=== PATIENT | female | born 2000 ===

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

== ENCOUNTER 2018-03-11 16:35 | Emergency (ER) | payer MEDICAID ==
[2018-03-11 16:44] VITALS: RESP 18; O2SAT 99
[2018-03-11 18:00] LABS: SQUAMOUS EPITHIAL 3 /hpf (0-5); URINE BILIRUBIN NEGATIVE (NEGATIVE); URINE BLOOD 1+ (NEGATIVE); URINE CLARITY Clear (Clear); URINE COLOR Yellow (YELLOW); URINE GLUCOSE (UA) NORMAL (Normal); URINE LEUKOCYTE ESTERASE NEG Leu/uL (Negative); URINE PROTEIN NEGATIVE (NEGATIVE); URINE UROBILINOGEN NORMAL mg/dL (0.2-1.0)
[2018-03-11 18:31] VITALS: BP 105/72; PULSE 58; TEMP 98.1
--- NOTE | 2018-03-11 18:58 | C.PDOC ---
History Of Present Illness 17 year old female presents to the ER with a complaint of cough, cold, sneezing , allergies, and suprapubic pain for the past 2 weeks. Denies fever, chills, chest pain, or SOB. Time Seen by Provider: 03/11/18 17:05 Chief Complaint (Nursing): Cough, Cold, Congestion History Per: Patient History/Exam Limitations: no limitations Onset/Duration Of Symptoms: Days Current Symptoms Are (Timing): Still Present Sick Contacts (Context): None Associated Symptoms: Cough, Other (Cold, Sneezing, Allergies, Suprapubic). denies: Fever, Chills Ear Symptoms: Bilateral: None Recent travel outside of the [place]: No Past Medical History Reviewed: Historical Data, Nursing Documentation, Vital Signs Vital Signs: Last Vital Signs Temp 98.1 F 03/11/18 18:30 Pulse 58 L 03/11/18 18:30 Resp 18 03/11/18 18:30 BP 105/72 03/11/18 18:30 Pulse Ox 99 03/11/18 23:17 Family History: States: Unknown Family Hx - Social History Hx Alcohol Use: No Hx Substance Use: Yes (weed) - Immunization History Hx Tetanus Toxoid Vaccination: No Hx Influenza Vaccination: No Hx Pneumococcal Vaccination: No Review Of Systems Constitutional: Negative for: Fever, Chills Cardiovascular: Negative for: Chest Pain, Palpitations Respiratory: Positive for: Cough. Negative for: Shortness of Breath Gastrointestinal: Positive for: Abdominal Pain. Negative for: Nausea, Vomiting Physical Exam - Physical Exam Appears: Non-toxic Skin: Normal Color, Warm, Dry, No Rash Head: Atraumatic, Normacephalic Eye(s): bilateral: Normal Inspection Ear(s): Bilateral: Normal Oral Mucosa: Moist Throat: Normal, No Erythema, No Exudate Neck: Normal ROM, Supple Chest: Symmetrical, No Tenderness Cardiovascular: Rhythm Regular, No Friction Rub, No Murmur Respiratory: Normal Breath Sounds, No Rales, No Rhonchi, No Wheezing Gastrointestinal/Abdominal: Soft, No Tenderness Back: Normal Inspection, No CVA Tenderness Extremity: Normal ROM, No Swelling Neurological/Psych: Oriented x3, Normal Speech, Normal Motor Gait: Steady ED Course And Treatment O2 Sat by Pulse Oximetry: 99 (Room air) Pulse Ox Interpretation: Normal - Radiology CXR: Interpreted by Me, Viewed By Me CXR Interpretation: Yes: No Acute Disease. No: Infiltrates Medical Decision Making Medical Decision Making: Claritin, tessalon, and prednisone administered. CXR and urinalysis ordered, results were negative. Patient reports that the suprapubic occurs only with coughing and is most likely muscular. The patient has no abdominal tenderness and normal physical exam. Patient is resting comfortably in the ER in no acute distress, vitals are stable. Will discharge home with instructions to follow up with PMD or return if symptoms worsen. Disposition - Disposition Referrals: [facility] [Outside] Disposition: HOME/ ROUTINE Disposition Time: 18:54 Condition: GOOD Additional Instructions: Follow up with the medical doctor within 1-2 days. Return if worsened. 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 - Scribe Statement The provider has reviewed the documentation as recorded by the Scribe Artur Calle All medical record entries made by the Scribe were at my direction and personally dictated by me. I have reviewed the chart and agree that the record accurately reflects my personal performance of the history, physical exam, medical decision making, and the department course for this patient. I have also personally directed, reviewed, and agree with the discharge instructions and disposition.
--- NOTE | 2018-03-12 06:58 | RAD ---
Chest x-ray two views History: Cough. Comparison: None available. Findings: No focal infiltrate or effusion. Heart size within normal limits. Impression: No focal infiltrate or effusion.
== END 2018-03-11 18:59 | disposition home or self-care (01) ==
LOC: C.ER 16:35
DX: J40 Bronchitis, not specified as acute or chronic (principal)

== ENCOUNTER 2018-06-27 19:22 | Emergency (ER) | payer MEDICAID ==
--- NOTE | 2018-06-27 20:25 | C.PDOC ---
History Of Present Illness 18 y/o female c/o growing mass in right axilla. pt sts it has been there since 2017 and has recently started growing with mild tenderness at night time. denies masses elsewhere to her knowledge. denies fever, chills, night sweats, weight loss. pt feeling fine otherwise. Time Seen by Provider: 06/27/18 19:51 Chief Complaint (Nursing): Abnormal Skin Integrity History Per: Patient History/Exam Limitations: no limitations Onset/Duration Of Symptoms: Days (since 2016) Current Symptoms Are (Timing): Worse Past Medical History Reviewed: Historical Data, Nursing Documentation, Vital Signs Vital Signs: Last Vital Signs Temp 98.4 F 06/27/18 20:32 Pulse 60 06/27/18 20:32 Resp 18 06/27/18 20:32 BP 94/64 L 06/27/18 20:32 Pulse Ox 98 06/28/18 06:01 - Medical History PMH: No Chronic Diseases Family History: States: Unknown Family Hx - Social History Hx Alcohol Use: No Hx Substance Use: Yes (weed) - Immunization History Hx Tetanus Toxoid Vaccination: No Hx Influenza Vaccination: No Hx Pneumococcal Vaccination: No Review Of Systems Constitutional: Negative for: Fever, Chills, Malaise, Weight loss Cardiovascular: Negative for: Chest Pain Respiratory: Negative for: Cough, Shortness of Breath Gastrointestinal: Negative for: Abdominal Pain Skin: Positive for: Other (bump in right armpit) Neurological: Negative for: Weakness, Numbness Physical Exam - Physical Exam Appears: Non-toxic, No Acute Distress Skin: Warm, Dry Head: Atraumatic, Normacephalic Oral Mucosa: Moist Neck: Supple Lymphatic: No Adenopathy (no cervical adenopathy), Axilla Node Tenderness (1 cm firm mobile, mildly tender mass in right axilla, no overlying erythema, warmth or fluctuance to mass. ) Cardiovascular: Rhythm Regular, No Murmur Respiratory: No Decreased Breath Sounds, No Wheezing Gastrointestinal/Abdominal: Soft, No Tenderness Pulses: Left Radial: Normal, Right Radial: Normal Neurological/Psych: Oriented x3, Normal Speech, Normal Cognition ED Course And Treatment O2 Sat by Pulse Oximetry: 98 Medical Decision Making Medical Decision Making: pt with right axillary mass since 2017 that is increasing in size. no acute intervention needed in ED; d/c home with pmd and general surgery f/u Disposition Counseled Patient/Family Regarding: Diagnosis, Need For Followup - Disposition Referrals: Carlos Her MD [Medical Doctor] - Dragan Álvarez MD [Staff Provider] - Disposition: HOME/ ROUTINE Disposition Time: 20:21 Condition: GOOD Additional Instructions: Please follow up with Dr Her and also with Dr Álvarez (general surgeon) for further evaluation of mass in right armpit. Call tomorrow to make appointments. Forms: [facility] (Indian), General Discharge Instructions - Clinical Impression Clinical Impression: Mass of right axilla
[2018-06-27 20:33] VITALS: BP 94/64; PULSE 60; RESP 18; TEMP 98.4
[2018-06-27 21:59] VITALS: O2SAT 98
== END 2018-06-27 20:33 | disposition home or self-care (01) ==
LOC: C.ER 19:22
DX: R22.31 Localized swelling, mass and lump, right upper limb (principal)